=== PATIENT | female | born 1955 | race Caucasian/White ===

== ENCOUNTER 2023-07-06 12:56 | Emergency (ER) | payer OTHER, SELFPAY ==
[2023-07-06 12:58] VITALS: BP 123/60; PULSE 64; RESP 16; TEMP 37; O2SAT 98; BMI 55.0
--- NOTE | 2023-07-06 13:01 | XR_ITS ---
[facility] [id number] Patient Name: TRAVIS MAURER MRN: [id number] date: 1955 Sex: F Assigned Patient Location: ER Current Patient Location: ED.MAIN Accession/Order Number: [id number] Exam Date: 07/06/2023 13:10 Report Date: 07/06/2023 13:41 At the request of: JOSH CIFUENTES Procedure: XR shoulder RT min 2V STUDY: XR shoulder RT min 2V, [id number] HISTORY: pain s/p fall COMPARISON: None FINDINGS: Mildly displaced vertically oriented fracture through the greater tuberosity. No definite transverse fracture extension along the surgical or anatomic neck of the right proximal humerus. No dislocation or other potentially acute fracture demonstrated. Moderate osteoarthritis of the acromioclavicular joint. XR/XR shoulder RT min 2V IMPRESSION: Mildly displaced fracture of the greater tuberosity. Electronically authenticated by: KYLE LUNDBERG Date: 07/06/2023 13:41
--- NOTE | 2023-07-06 13:01 | ED.UPPEXIN1 ---
HPI - Extremity Injury (Upper) General Chief Complaint: Extremity Injury, Upper Stated Complaint: FALL Time Seen by Provider: 07/06/23 13:00 History of Present Illness HPI narrative: Patient is a 67-year-old female presents to the Emergency Room with concerns of right shoulder pain. Right-hand dominant patient states she was wearing flip flops walking into a [employer] shop and tripped. patient sstates she tried to catch herself with her right arm on the counter and her arm goot pulled backwards feeling a pop. Patient notes significant pain in the right shoulder, no obvious deformity. Presents via EMS who gave her 75 ?g of fentanyl in route. Patient denies any numbness and tingling in the lower extremity. She denies any head or neck injury. Patient's works for [employer]. MD complaint: injury to: Reports right and shoulder Other Extremity Injury: Right: shoulder Related Data Previous Rx's Medication Instructions Recorded hydrocodone 5 mg-acetaminophen 325 1 tab PO Q6H PRN pain 3 days #12 07/06/23 mg tablet tabs Allergies Allergy/AdvReac Type Severity Reaction Status Date / Time amoxicillin Allergy Severe Verified 07/06/23 12:58 Review of Systems ROS Constitutional Denies: fever or chills Eyes Denies: change in vision Ears, nose, mouth, and throat Denies: throat pain or neck pain Cardiovascular Denies: chest pain or palpitations Respiratory Denies: shortness of breath or cough Gastrointestinal Denies: abdominal pain or nausea Musculoskeletal Denies: back pain or neck pain Integumentary/Breast Denies: rash or itching Psychiatric Denies: anxiety or mood swings Exam Narrative Exam Narrative: Nurses notes and vital signs reviewed and patient is not hypoxic. General: The patient appears well and in no apparent distress.received pain medication in route. Patient is resting comfortably on cart sitting upright Skin: Warm, dry, no pallor noted.no evidence of rash, no skin injury Head: Normocephalic, atraumatic Neck: Supple, trachea mid-line, no tenderness, no lymphadenopathy, no midline neck tenderness. Full painless range of motion of the neck Eye: Pupils are equal, round and reactive to light, EOMI Ears, Nose, Mouth, and Throat:external exam unremarkable Cardiovascular: Regular Rate and Rhythm Respiratory: Patient is in no distress, no accessory muscle use, lungs are clear to auscultation, no wheezing, rales or rhonchi. Chest Wall: no tenderness, no clavicular tenderness Musculoskeletal: limited range of motion right shoulder secondary to pain, palpable tenderness with no crepitus to the proximal humerus. Elbow joint is nontender demonstrating full range of motion with flexion extension pronation and supination. No evidence of wrist drop. Patient able to squeeze hand box coverer tightly. Neurological: A&O x4 Psychiatric: Cooperative Constitutional Vital Signs, click to edit/add: Last Vital Signs Temp 98.6 F 07/06/23 12:58 Pulse 64 07/06/23 12:58 Resp 16 07/06/23 12:58 BP 123/60 07/06/23 12:58 Pulse Ox 98 07/06/23 13:03 O2 Del Method Room Air 07/06/23 13:03 Course Vital Signs Vital signs: Vital Signs Temperature 98.6 F 07/06/23 12:58 Pulse Rate 64 07/06/23 12:58 Respiratory Rate 16 07/06/23 12:58 Blood Pressure 123/60 07/06/23 12:58 Pulse Oximetry 98 07/06/23 12:58 Oxygen Delivery Method Room Air 07/06/23 12:58 Temperature 98.6 F 07/06/23 12:58 Pulse Rate 64 07/06/23 12:58 Respiratory Rate 16 07/06/23 12:58 Blood Pressure 123/60 07/06/23 12:58 Pulse Oximetry 98 07/06/23 13:03 Oxygen Delivery Method Room Air 07/06/23 13:03 MDM - Extremity Injury (Upper) MDM Narrative Medical decision making narrative: patient declined the need for additional pain medication. Ice pack applied, x-ray ordered of the right shoulder to rule out fracture dislocation given patient's symptoms. discussed x-ray, patient has a proximal humerus fracture . Patient placed in a sling and swath, neurovascular intact status post application. Recommend ice, no lifting pushing or pulling with the right upper extremity. We discussed follow-up to local orthopedics. Her insurance is through [facility] ( husbands employer), she is given the name of ortho for Jose Miguel and [facility] to call for ongoing evaluation and management of her fracture. The patient is to followup with primary care physician/ Orthopedics in next 2-3 days or to return to the emergency department should any of the signs or symptoms worsen or new symptoms develop. Patient had questions answered. The patient agrees with the following Diagnosis and Treatment plan and the patient will be discharged home. pain medication discussed, medication safety reviewed. oarrs reviewed. Discharge Plan Discharge Chief Complaint: Extremity Injury, Upper Clinical Impression: Acute pain of right shoulder, Fracture of proximal end of right humerus Patient Disposition: Home, Self-Care Time of Disposition Decision: 13:29 Condition: Good Prescriptions / Home Meds: New hydrocodone-acetaminophen 5-325 mg tablet 1 tab PO Q6H PRN (Reason: pain) 3 Days Qty: 12 0RF Instructions: Proximal Humerus Fracture (ED) Stand Alone Forms: Portal Instructions Referrals: DAINA CAVANAUGH [Physician] - As soon as possible Cy Minor MD [Physician] - As needed
[2023-07-06 13:03] VITALS: O2SAT 98
== END 2023-07-06 14:22 | disposition home or self-care (01) ==
PROVIDERS: Emergency Provider Emergency Medicine; PCP Family Medicine
DX: S42.201A Unspecified fracture of upper end of right humerus, initial encounter for closed fracture (principal); W18.09XA Striking against other object with subsequent fall, initial encounter
CPT/HCPCS: 73030; 99283